=== PATIENT | female | born 1940 | race Caucasian/White ===

== ENCOUNTER 2020-04-09 15:39 | Emergency (ER) | payer MEDICARE, OTHER ==
[2020-04-09] MEDS ORDERED: predniSONE 20 MG TAB ONE (15:55)
[2020-04-09] MEDS ORDERED: Famotidine 20 MG TAB ONE (15:55)
== END 2020-04-09 16:50 | disposition home or self-care (01) ==
LOC: NAV ERS 15:39
DX: R06.02 Shortness of breath (principal); L29.9 Pruritus, unspecified; T37.8X5A Adverse effect of other specified systemic anti-infectives and antiparasitics, initial encounter; E78.00 Pure hypercholesterolemia, unspecified; I10 Essential (primary) hypertension; Z87.891 Personal history of nicotine dependence; Z79.899 Other long term (current) drug therapy
CPT/HCPCS: 99284; J7512